=== PATIENT | female | born 1990 | race Caucasian/White ===

== ENCOUNTER 2021-11-21 15:48 | Emergency (ER) | payer OTHER ==
[~2021-11-21 15:48] MED LIST: IBU600 MG PO; SPRINTEC 28 DA1 EACH PO
[2021-11-21] MEDS ORDERED: MOTRIN600 MG PO (17:30)
[2021-11-21] MEDS ORDERED: FLEXERIL5 MG PO (17:30)
== END 2021-11-21 18:03 | disposition home or self-care (01) ==
LOC: FER 15:48
DX: S46.811A Strain of other muscles, fascia and tendons at shoulder and upper arm level, right arm, initial encounter (principal); S50.12XA Contusion of left forearm, initial encounter; V86.99XA Unspecified occupant of other special all-terrain or other off-road motor vehicle injured in nontraffic accident, initial encounter; Y92.009 Unspecified place in unspecified non-institutional (private) residence as the place of occurrence of the external cause
CPT/HCPCS: 73070

== ENCOUNTER 2022-02-23 08:24 | Emergency (ER) | payer OTHER ==
[~2022-02-23 08:24] MED LIST changes: +FLEXERIL5 MG PO; +MOTRIN600 MG PO
[2022-02-23 09:53] LABS: CORONAVIRUS 2019 SARS-COV-2 NEGATIVE (NEGATIVE); INFLUENZA A NAA NEGATIVE (NEGATIVE)
[2022-02-23] MEDS ORDERED: AMOXICILLIN500 MG PO (10:53)
== END 2022-02-23 11:05 | disposition home or self-care (01) ==
LOC: FER 08:24
PROVIDERS: Emergency Medicine
DX: J03.90 Acute tonsillitis, unspecified (principal); Z20.822 Contact with and (suspected) exposure to COVID-19
CPT/HCPCS: 87880; 99283; U0002